=== PATIENT | male | born 1955 | race Two or more races ===

== ENCOUNTER 2020-10-24 04:38 | Day surgery (SDC) | payer OTHER ==
[2020-10-21 10:28] VITALS: BMI 26.2
[2020-10-24] MEDS ORDERED: MIDAZOLAM HCL 2 MG/2 ML SINGLE DOSE VIAL ONE (11:23)
[2020-10-24] MEDS ORDERED: KETOROLAC TROMETHAMINE 30 MG/1 ML VIAL ONE (11:54)
[2020-10-24 14:21] VITALS: BP 120/71; PULSE 67; TEMP 97
== END 2020-10-24 14:05 | disposition home or self-care (01) ==
LOC: JASU-SURG 04:38
PROVIDERS: ATTEND Urology
PROC: 0TF3XZZ Fragmentation in Right Kidney Pelvis, External Approach (ICD-10-PCS; principal; 2020-10-24 12:30)
DX: N20.0 Calculus of kidney (principal)
CPT/HCPCS: 82962

== ENCOUNTER 2020-11-21 04:32 | Day surgery (SDC) | payer OTHER ==
[2020-11-17 12:13] VITALS: BMI 26.2
[2020-11-21] MEDS ORDERED: PROPOFOL 20 ML ONE ×2 (09:45)
[2020-11-21 16:38] VITALS: BP 118/70; PULSE 62; TEMP 98
== END 2020-11-21 15:15 | disposition home or self-care (01) ==
LOC: JASU-SURG 04:32
PROVIDERS: ATTEND Urology
PROC: 0TF4XZZ Fragmentation in Left Kidney Pelvis, External Approach (ICD-10-PCS; principal; 2020-11-21 12:00)
DX: N20.0 Calculus of kidney (principal)
CPT/HCPCS: 82962; C9803; U0003; U0005